=== PATIENT | female | born 1975 | race Two or more races ===

== ENCOUNTER 2023-10-19 14:56 | Emergency (ER) | payer OTHER ==
[~2023-10-19] VITALS: Ht 162.6 cm; Wt 68.5 kg
[2023-10-19] MEDS ORDERED: FAMOTIDINE/PF 20 MG/2 ML VIAL IV PUSH STA (16:02)
[2023-10-19] MEDS ORDERED: MAG HYDROX/ALUMINUM HYD/SIMETH 30 ML BLIST.PACK PO STA (16:03)
[2023-10-19] MEDS ORDERED: hydrOXYzine PAMOATE 25 MG CAPSULE PO STA (16:03)
[2023-10-19] MEDS ORDERED: MAG HYDROX/ALUMINUM HYD/SIMETH 30 ML BLIST.PACK PO ONE (16:11)
[2023-10-19] MEDS ORDERED: hydrOXYzine PAMOATE 50 MG CAPSULE PO ONE (16:11)
[2023-10-19] MEDS ORDERED: HYOSCYAMINE SULFATE 0.125 MG TAB.SUBL ONE (16:11)
[2023-10-19] MEDS ORDERED: hydrOXYzine PAMOATE 25 MG CAPSULE PO ONE (16:11)
[2023-10-19] MEDS ORDERED: FAMOtidine 200mg/20ml VIAL ONE (16:11)
[2023-10-19] MEDS ORDERED: HYOSCYAMINE SULFATE 0.125 MG TAB.SUBL SL ONE (16:15)
[2023-10-19] MEDS ORDERED: ACID REDUCER20 M1 PO (17:27)
[2023-10-19] MEDS ORDERED: PEPCID AC20 MG PO (17:27)
== END 2023-10-19 17:34 | disposition home or self-care (01) ==
LOC: ER 14:58
DX: K21.9 Gastro-esophageal reflux disease without esophagitis (principal)